=== PATIENT | female | born 1990 | race African-American/Black ===

== ENCOUNTER 2022-11-02 11:37 | Emergency (ER) | payer MEDICAID ==
[~2022-11-02] VITALS: Ht 172.7 cm; Wt 99.8 kg
[2022-11-02] MEDS ORDERED: VIBRAMYCIN100 MG PO (12:16)
== END 2022-11-02 12:52 | disposition home or self-care (01) ==
LOC: ED 11:37
DX: L02.414 Cutaneous abscess of left upper limb (principal); Z87.891 Personal history of nicotine dependence